=== PATIENT | female | born 1995 | race Caucasian/White ===

== ENCOUNTER 2017-04-07 07:30 | Emergency (ER) | payer OTHER ==
[2017-04-07 07:36] VITALS: BP 129/84
[2017-04-07] MEDS ORDERED: DEXAMETHASONE 10 MG/ML VIAL PO STA (07:49)
--- NOTE | 2017-04-07 07:52 | ED Physician Documentation ---
PD HPI HEENT - Stated complaint Stated Complaint: THROAT PX - Chief complaint Chief Complaint: Heent - History obtained from History obtained from: Patient, Family - History of Present Illness Timing - onset: How many days ago (3) Timing - duration: Days (3) Timing - details: Gradual onset, Still present Location: Throat Improves: Medication Worsens: Swalllowing Associated symptoms: Fever, Congestion, Rhinorrhea Similar symptoms before: Diagnosis (strep) Recently seen: Not recently seen - Additional information Additional information: 21 y/o female with a sore throat and strep is going around. She states that she has not had a cold this bad since she was in grade school and got strep. Review of Systems Constitutional: reports: Fever, Chills, Myalgias, Fatigue Eyes: denies: Decreased vision Ears: denies: Ear pain Nose: reports: Rhinorrhea / runny nose, Congestion Throat: reports: Sore throat Cardiac: denies: Chest pain / pressure, Palpitations Respiratory: reports: Cough. denies: Dyspnea GI: denies: Abdominal Pain, Nausea, Vomiting : denies: Dysuria Skin: denies: Rash PD PAST MEDICAL HISTORY - Past Medical History Past Medical History: No - Past Surgical History Past Surgical History: No - Present Medications Home Medications: Ambulatory Orders Medication Instructions Recorded Confirmed Amoxicillin 500 mg PO TID #30 capsule 04/07/17 - Allergies Allergies/Adverse Reactions: Allergies Allergy/AdvReac Type Severity Reaction Status Date / Time No Known Drug Allergies Allergy Verified 04/07/17 07:36 - Social History Does the pt smoke?: No Smoking Status: Never smoker Does the pt drink ETOH?: Yes Does the pt have substance abuse?: No - Immunizations Immunizations are current?: Yes PD ED PE NORMAL - Vitals Vital signs reviewed: Yes (hypertensive) - General General: Alert and oriented X 3, No acute distress, Well developed/nourished - HEENT HEENT: Atraumatic, PERRL, EOMI, Other (both TM's are flush the pharynx is erythematous with minimal exudate and no tonsilar hypertrophy ) - Neck Neck: Supple, no meningeal sign, No bony TTP, Other (tender submandibular adenopathy ) - Cardiac Cardiac: RRR, No murmur - Respiratory Respiratory: No respiratory distress, Clear bilaterally - Abdomen Abdomen: Soft, Non tender - Back Back: No CVA TTP, No spinal TTP - Derm Derm: Normal color, Warm and dry, No rash - Extremities Extremities: No deformity, No edema - Neuro Neuro: Alert and oriented X 3, No motor deficit, No sensory deficit, Normal speech - Psych Psych: Normal mood, Normal affect Results - Vitals Vitals: Vital Signs - 24 hr 04/07/17 07:34 Temperature 37.1 C Heart Rate 95 Respiratory 18 Rate Blood Pressure 129/84 H O2 Saturation 98 Oxygen O2 Source Room air - Labs Labs: Laboratory Tests 04/07/17 07:50 Group A Strep Rapid Negative PD MEDICAL DECISION MAKING - ED course Complexity details: reviewed results, re-evaluated patient, considered differential, d/w patient, d/w family ED course: 21 y/o female with inflamation and pain in the pharynx and strep is going around. She is treated imperically with a negative strep screen. Departure - Departure Disposition: 01 Home, Self Care Clinical Impression: Pharyngitis Qualifiers: Pharyngitis/tonsillitis etiology: unspecified etiology Qualified Code(s): J02.9 - Acute pharyngitis, unspecified Condition: Stable Instructions: ED Strep Pharyngitis Poss Follow-Up: [facility] [Provider Group] Prescriptions: Amoxicillin 500 mg PO TID #30 capsule Comments: Today in the Emergency Department your blood pressure was elevated. This can happen from the stress of the visit itself, from a current illness or circumstance or from uncontrolled hypertension. If you take blood pressure medications take your usual mediations, have your blood pressure re-checked in an appropriate setting and follow up any elevation with your primary care doctor. Forms: Activity restrictions Discharge Date/Time: 04/07/17 08:35
[2017-04-07] MEDS ORDERED: DEXAMETHASONE 10 MG/ML VIAL ONE (07:53)
[2017-04-07] MEDS ORDERED: CHERRY SYRUP 10 ML UDC PO ONE (07:53)
[2017-04-07 08:23] LABS: RAPID STREP SCREEN REAGENT QC YELLOW (YELLOW)
== END 2017-04-07 08:35 | disposition home or self-care (01) ==
LOC: ED 07:30
DX: J02.9 Acute pharyngitis, unspecified (principal)
CPT/HCPCS: 87070; 87430; 99283; A9270

== ENCOUNTER 2019-04-29 20:31 | Emergency (ER) | payer OTHER ==
[2019-04-29] MEDS ORDERED: AMOX/CLAV 875 MG/125 MG TABLET PO STA (21:01)
--- NOTE | 2019-04-29 21:05 | ED Physician Documentation ---
PD HPI UPPER EXT INJURY - Stated complaint Stated Complaint: L HAND DOG BITE - Chief complaint Chief Complaint: Wound - History obtained from History obtained from: Patient - History of Present Illness Location: Left (23-year-old woman who is up-to-date on tetanus and actually also probably immune to rabies from that bite 5 years ago was bitten by her own fully immunized and healthy dog to the left hand at home breaking up a dog fight just prior to arrival.) Review of Systems Constitutional: reports: Reviewed and negative Cardiac: reports: Reviewed and negative Respiratory: reports: Reviewed and negative PD PAST MEDICAL HISTORY - Past Medical History [employer]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 : 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 - Past Surgical History Past Surgical History: No - Present Medications Home Medications: Ambulatory Orders Medication Instructions Recorded Confirmed Fluconazole [Diflucan] 100 mg PO ONCE #1 tablet 09/03/17 Metronidazole [Flagyl] 500 mg PO BID #14 tablet 09/03/17 Nystatin Cream [Mycostatin Cream] 1 applic TOP BID #15 g 09/03/17 Amox/Clav 875/125 [Augmentin] 1 each PO Q12H #10 tablet 04/29/19 - Allergies Allergies/Adverse Reactions: Allergies Allergy/AdvReac Type Severity Reaction Status Date / Time No Known Drug Allergies Allergy Verified 09/03/17 17:26 - Social History Does the pt smoke?: No Smoking Status: Never smoker Does the pt drink ETOH?: Yes Does the pt have substance abuse?: No - Immunizations Immunizations are current?: Yes - POLST Patient has POLST: No PD ED PE NORMAL - Vitals Vital signs reviewed: Yes - General General: Alert and oriented X 3, No acute distress - Extremities Extremities: Other (In the first dorsal webspace of the left hand there are a puncture wound on either side without limited range of motion or bony tendern ess. She has normal neurovascular function in the first and second digits.) - Neuro Neuro: Alert and oriented X 3, Normal speech Results - Vitals Vitals: Vital Signs - 24 hr 04/29/19 20:34 Temperature 36.5 C Heart Rate 106 H Respiratory 16 Rate Blood Pressure 143/93 H O2 Saturation 100 Oxygen O2 Source Room air Departure - Departure Disposition: 01 Home, Self Care Clinical Impression: Dog bite of left hand Qualifiers: Encounter type: initial encounter Qualified Code(s): S61.452A - Open bite of left hand, initial encounter; W54.0XXA - Bitten by dog, initial encounter Condition: Good Record reviewed to determine appropriate education?: Yes Health Concerns: Dog bite to the left hand Plan of Treatment: She is up-to-date on tetanus. The dog is healthy. We will start on antibiotics and other than that just needs basic wound care with soap and water and Band- Aids. Return for signs of infection. We are required to contact animal control. Care Goals: To prevent infection and to have good wound healing Assessment: as above Instructions: Bites Scratches Animal Prescriptions: Amox/Clav 875/125 [Augmentin] 1 each PO Q12H #10 tablet Comments: Return if worse, especially if you develop increased pain, fevers, cannot keep down the medication. Otherwise follow-up with your physician in approximately 2-3 days. Forms: Activity restrictions
[2019-04-29] MEDS ORDERED: BACITRACIN OINT TOP ONE (21:21)
[2019-04-29 21:28] VITALS: BP 114/74
== END 2019-04-29 21:27 | disposition home or self-care (01) ==
LOC: ED 20:31
DX: S61.452A Open bite of left hand, initial encounter (principal); W54.0XXA Bitten by dog, initial encounter; Y93.89 Activity, other specified; Y92.009 Unspecified place in unspecified non-institutional (private) residence as the place of occurrence of the external cause
CPT/HCPCS: 99283; A9270

== ENCOUNTER 2020-01-14 11:34 | Emergency (ER) | payer OTHER ==
--- NOTE | 2020-01-14 12:38 | ED Physician Documentation ---
PD HPI URI - Stated complaint Stated Complaint: THROAT PX - Chief complaint Chief Complaint: Heent - History obtained from History obtained from: Patient - History of Present Illness Timing - onset: How many weeks ago (1 week of congestion sore throat and coughing and was improving and now with left ear pain for a day and a half. No drainage from the ear. Some sore throat as well.) Timing details: Abrupt onset, Still present Associated symptoms: Fever, Ear pain (left ear), Nasal congestion (1 week), Sore throat, Dry cough. No: Swollen nodes Contributing factors: No: Sick contact, Travel, Immunocompromised Similar symptoms before: Has not had sx before Recently seen: Not recently seen Review of Systems Constitutional: reports: Fever, Myalgias Ears: reports: Ear pain. 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 : None - Past Surgical History Past Surgical History: No - Present Medications Home Medications: Ambulatory Orders Medication Instructions Recorded Confirmed Fluconazole [Diflucan] 100 mg PO ONCE #1 tablet 09/03/17 Metronidazole [Flagyl] 500 mg PO BID #14 tablet 09/03/17 Nystatin Cream [Mycostatin Cream] 1 applic TOP BID #15 g 09/03/17 Amox/Clav 875/125 [Augmentin] 1 each PO Q12H #10 tablet 04/29/19 Cephalexin [Keflex] 500 mg PO TID #21 capsule 01/14/20 Cetirizine [ZyrTEC] 10 mg PO DAILY #15 tablet 01/14/20 Ibuprofen [Motrin] 600 mg PO TID PRN #20 tab 01/14/20 dexAMETHasone [Decadron] 4 mg PO DAILY #5 tablet 01/14/20 - Allergies Allergies/Adverse Reactions: Allergies Allergy/AdvReac Type Severity Reaction Status Date / Time No Known Drug Allergies Allergy Verified 01/14/20 11:49 - Social History Does the pt smoke?: No Smoking Status: Never smoker Does the pt drink ETOH?: Yes Does the pt have substance abuse?: No - Immunizations Immunizations are current?: Yes - POLST Patient has POLST: No PD ED PE NORMAL - Vitals Vital signs reviewed: Yes - General General: Alert and oriented X 3, No acute distress, Well developed/nourished - HEENT HEENT: Pharynx benign. No: Ears normal (right is okay; left with redness and bulging. ) - Neck Neck: Supple, no meningeal sign, No adenopathy - Cardiac Cardiac: RRR, No murmur - Respiratory Respiratory: Clear bilaterally - Derm Derm: Normal color, Warm and dry, No rash - Extremities Extremities: Normal ROM s pain - Neuro Neuro: Alert and oriented X 3, No motor deficit, Normal speech Results - Vitals Vitals: Vital Signs - 24 hr 01/14/20 01/14/20 11:49 13:33 Temperature 37 C 37.1 C Heart Rate 81 71 Respiratory 17 12 Rate Blood Pressure 136/86 H 98/79 O2 Saturation 99 100 Oxygen O2 Source Room air PD MEDICAL DECISION MAKING - ED course Complexity details: considered differential (She had had head cold and viral type symptoms this past week and was improving and now with ear pain and sore throat. Clinically appears to be ear infection. We will treat as potentially bacterial as well as going with anti-inflammatories and antihistamines.), d/w patient Departure - Departure Disposition: 01 Home, Self Care Clinical Impression: Acute otitis media Qualifiers: Otitis media type: suppurative Laterality: left Recurrence: non-recurrent Spontaneous tympanic membrane rupture: without spontaneous rupture Qualified Code(s): H66.002 - Acute suppurative otitis media without spontaneous rupture of ear drum, left ear Upper respiratory infection Qualifiers: URI type: unspecified URI Qualified Code(s): J06.9 - Acute upper respiratory infection, unspecified Condition: Stable Record reviewed to determine appropriate education?: Yes Instructions: ED Otitis Media Acute Adult Prescriptions: Cephalexin [Keflex] 500 mg PO TID #21 capsule Cetirizine [ZyrTEC] 10 mg PO DAILY #15 tablet dexAMETHasone [Decadron] 4 mg PO DAILY #5 tablet Ibuprofen [Motrin] 600 mg PO TID PRN #20 tab PRN Reason: Pain Comments: Stay well-hydrated. Tylenol or ibuprofen 3 times a day for pains and fevers. D ecadron steroid anti-inflammatory to reduce inflammation through the eustachian tube and tonsils. Cephalexin antibiotic for presumed bacterial infection. Cetirizine antihistamine daily for a week or 2. Recheck if not improving well over the next several days. Discharge Date/Time: 01/14/20 13:37
[2020-01-14] MEDS ORDERED: CHERRY SYRUP 10 ML UDC PO ONE (13:16)
[2020-01-14] MEDS ORDERED: DEXAMETHASONE 10 MG/ML VIAL PO STA (13:16)
[2020-01-14] MEDS ORDERED: cephALEXin 250 MG CAPSULE PO STA (13:16)
[2020-01-14] MEDS ORDERED: CETIRIZINE 10 MG TABLET PO STA (13:16)
[2020-01-14] MEDS ORDERED: ACETAMINOPHEN 325 MG TABLET PO STA (13:16)
[2020-01-14 13:34] VITALS: BP 98/79
== END 2020-01-14 13:37 | disposition home or self-care (01) ==
LOC: ED 11:34
DX: H66.002 Acute suppurative otitis media without spontaneous rupture of ear drum, left ear (principal)
CPT/HCPCS: 99284; A9270